=== PATIENT | male | born 1975 | race Caucasian/White ===

== ENCOUNTER 2018-02-28 18:18 | Emergency (ER) | payer SELFPAY ==
[2018-02-28] MEDS ORDERED: diphenhydrAMINE HCL 25 MG TABLET PO ONE (18:25)
[2018-02-28] MEDS ORDERED: CLINDAMYCIN HCL 150 MG CAPSULE PO ONE (18:25)
[2018-02-28] MEDS ORDERED: NEOMYCIN/BACITRACIN/POLYMYXINB 1 EACH OINT.PACK TP ONE (18:25)
--- NOTE | 2018-02-28 18:31 | ED Physician Documentation ---
General Adult - HISTORIAN Historian: patient, other (guard) - HPI Stated Complaint: allergic reaction Chief Complaint: General Adult Additional Information: Seen in this ER yesterday for treatment of now 4 day old fci tattoo on right forearm. Given vancomycin in ER and prescribed bactrim. Took 1st dose of bactrim at 0900 today. At 1630, says throat became scratchy and he felt it was difficult to breathe. Right forearm feels like fire. Says he has red itchy rash all over chest since 1630. Has pink inguinal rash for two days which he associates with tattoo infection. Brought to ER by [employer]. No other modifying factors or associated signs. - ROS CONST: no problems - PAST HX Past History: none Surgeries/Procedures: other (neck surgery) Allergies/Adverse Reactions: Allergies Allergy/AdvReac Type Severity Reaction Status Date / Time Penicillins Allergy Intermediate Rash Verified 02/28/18 18:31 Home Medications: Ambulatory Orders Medication Instructions Recorded Ibuprofen 800 mg PO BID PRN #10 tablet 02/27/18 Sulfamethoxazole/Trimethoprim 1 each PO BID #20 tablet 02/27/18 [Bactrim Ds] Clindamycin HCl 300 mg PO Q8H #30 capsule 02/28/18 Neomycin/Bacitracin/Polymyxinb 1 each TP DAILY #15 oint.pack 02/28/18 [Triple Antibiotic Ointment] diphenhydrAMINE HCL [Benadryl] 25 mg PO Q8 PRN #10 tablet 02/28/18 - SOCIAL HX Smoking History: cigarettes Drug Use: marijuana, methamphetamines - FAMILY HX Family History: No - VITAL SIGNS Vital Signs: Vital Signs Temp Pulse Resp BP Pulse Ox 128/81 02/27/18 22:22 - REVIEWED ASSESSMENTS Nursing Assessment Reviewed: Yes Vitals Reviewed: Yes Progress - Progress Progress: Not given keflex since he says he has penicillin allergy. He cannot remember which antibiotics he has taken in the past. ED Results Lab/Radiology - Orders Orders: ED Orders Category Date Time Status Apply occlusive dressing D Care 02/28/18 18:26 Ordered Clindamycin HCl [Cleocin] Med 02/28/18 18:25 Once 300 mg PO NOW ONE Neomycin/Bacitracin/Polymyxinb [Triple Antibiotic Med 02/28/18 18:25 Once Ointment] 1 each TP NOW ONE diphenhydrAMINE HCL [Benadryl] Med 02/28/18 18:25 Once 25 mg PO NOW ONE General Adult Physical Exam - PHYSICAL EXAM GENERAL APPEARANCE: mild distress (anxious. Speaks in lengthy sentences w/o any difficulty) EENT: eye inspection normal, ENT inspection normal, pharynx normal (Mallampati 1), no signs of dehydration, other (No muffling or raspiness of voice.). No: pharyngeal erythema NECK: normal inspection, supple. No: lymphadenopathy RESPIRATORY: no resp distress, breath sounds normal. No: wheezes, rales CVS: reg rate & rhythm, heart sounds normal, no murmur BACK: normal inspection SKIN: warm/dry, normal color (Had 12x6 cm area of erythema L upper chest which he scratched several times. Area returned to normal color when itching stopped), other (Tattoo'ed area right proximal forear, with scabbed areas of erythema x 3; one area more distal. No draine=age or fluctuance. Multiple scattered 1 cm or less diameter macules scattered over right forearm. Has pink coalesced tiny macules bilateral inguinal areas. ) EXTREMITIES: normal range of motion (gait and stance, limited by cuffs) NEURO: CN's nml as tested, motor nml, sensation nml, cognition normal Discharge Clincal Impression: Cellulitis Qualifiers: Site of cellulitis: extremity Site of cellulitis of extremity: upper extremity Laterality: right Qualified Code(s): L03.113 - Cellulitis of right upper limb Prescriptions: Clindamycin HCl 300 mg PO Q8H #30 capsule diphenhydrAMINE HCL [Benadryl] 25 mg PO Q8 PRN #10 tablet PRN Reason: Allergy Symptoms Neomycin/Bacitracin/Polymyxinb [Triple Antibiotic Ointment] 1 each TP DAILY #15 oint.pack Referrals: Primary Doctor,No [Primary Care Provider] - 2 Days Condition: Good Disposition: 01 HOME, SELF-CARE Decision to Admit: NO Decision Time: 19:00
[2018-02-28 19:10] VITALS: BP 133/74
== END 2018-02-28 19:00 | disposition home or self-care (01) ==
LOC: ED 18:18
DX: L30.9 Dermatitis, unspecified (principal); R06.00 Dyspnea, unspecified
CPT/HCPCS: A9270; Q0163; 99282